=== PATIENT | female | born 1980 | race American Indian/Alaskan Native ===

== ENCOUNTER 2016-03-23 12:47 | Outpatient (CLI) | payer MEDICAID ==
[2016-03-23 14:11] LABS: Hematocrit 39.5 % (30.3-42.9); Mean Corpuscular HGB Conc 33 % (30-34); Mean Corpuscular Hemoglobin 30 pg (28-32); Mean Corpuscular Volume 90 fl (79-97); Platelet Count 340 K/mm3 (140-440); Red Blood Count 4.39 M/mm3 (3.65-5.03); White Blood Count 8.1 K/mm3 (4.5-11.0)
[2016-03-23 14:14] LABS: Bilirubin,Urine NEG (Negative); Blood,Urine NEG (Negative); Ketones,Urine 20 mg/dL (Negative); Leukocyte Esterase,Urine NEG (Negative); Mucus,Urine FEW /HPF; Nitrite,Urine NEG (Negative); Protein,Urine <15 mg/dL mg/dL (Negative); Urobilinogen,Urine < 2.0 mg/dL (<2.0)
[2016-03-23 14:24] LABS: Alanine Aminotransferase 7 units/L (7-56); Lactate Dehydrogenase 126 units/L (91-180); Uric Acid 4.8 mg/dL (3.5-7.6)
[2016-03-28 13:23] VITALS: BP 123/60
== END 2016-03-23 15:25 | disposition home or self-care (01) ==
LOC: TRG 12:47
PROVIDERS: ATTEND Obstetrics & Gynecology
DX: O47.1 False labor at or after 37 completed weeks of gestation (principal); Z3A.38 38 weeks gestation of pregnancy
CPT/HCPCS: 36415; 59025; 81001; 82565; 83615; 84450; 84460; 84550; 85027

== ENCOUNTER 2016-03-28 08:05 | Inpatient (IN) | payer MEDICAID ==
[2016-03-28] MEDS ORDERED: POLYCILLIN/NS 2 GM/100 ML 2 GM/100 ML BAG IV ONE (09:26)
[2016-03-28] MEDS ORDERED: PITOCin/NS 30 UNIT/500ML 30,000 MILLIUNITS/500 ML BAG IV ONE (09:26)
[2016-03-28] MEDS ORDERED: LACTATED RINGERS 1,000 ML ONE ×3 (09:26→13:13)
[2016-03-28] MEDS ORDERED: PITOCin/NS 20 UNIT/1000ML DRIP 20,000 MILLIUNITS/1,000 ML BAG IV ONE (09:26)
[2016-03-28] MEDS ORDERED: fentaNYL-BUPIV 2 MCG/ML-0.125% 200 MCG/100 ML BAG EPIDURAL ONE (11:10)
[2016-03-28] MEDS ORDERED: ePHEDrine SULFATE ONE (11:10)
[2016-03-28] MEDS ORDERED: SUBLIMAZE ONE (11:10)
[2016-03-28] MEDS ORDERED: XYLOCAINE MPF 2% ONE (13:17)
--- NOTE | 2016-03-28 13:51 | Procedure Note ---
OB Delivery Note - Delivery Date of Delivery: 03/28/16 (7-4oz male 1338) Surgeon: PARVEEN YE Estimated blood loss: <100cc - Vaginal Delivery presentation: vertex Delivery position: OA Intrapartum events: none Delivery induction: oxytocin Delivery augmentation: rupture of membranes, pitocin Delivery monitor: external FHT, external uterine, internal FHT, internal uterine Route of delivery: Delivery placenta: spontaneous Delivery cord: 3 umbilical vessels Episiotomy: none Delivery laceration: none Anesthesia: epidural - Infant A at 1 minute: 8 at 5 minutes: 9 Infant Gender: Male ( viable male. Cord short, clamped, cut, infant skin to skin. Cord blood collected. Spont. placenta, Pitocin infusing. Bleeding scant. No lacerations.)
[2016-03-28] MEDS ORDERED: TYLENOL PO PRN (13:52)
[2016-03-28] MEDS ORDERED: DERMOPLAST TP PRN (13:52)
[2016-03-28] MEDS ORDERED: MILK OF MAGNESIA PO PRN (13:52)
[2016-03-28] MEDS ORDERED: PHENERGAN PO PRN (13:52)
[2016-03-28] MEDS ORDERED: BENADRYL PO PRN (13:52)
[2016-03-28] MEDS ORDERED: PHENERGAN PR PRN (13:52)
[2016-03-28] MEDS ORDERED: LANSINOH TP PRN (13:52)
[2016-03-28] MEDS ORDERED: ZOFRAN IV PRN (13:52)
[2016-03-28] MEDS ORDERED: DULCOLAX PR PRN (13:52)
[2016-03-28] MEDS ORDERED: TUCKS PAD TP PRN (13:52)
[2016-03-28] MEDS ORDERED: SODIUM CHLORIDE FLUSH SYRINGE 10 ML IV NR (14:00)
[2016-03-28] MEDS ORDERED: ePHEDrine SULFATE IV PRN (14:44)
[2016-03-28] MEDS ORDERED: NARCAN 2 MG/2 ML IV PRN (14:44)
--- NOTE | 2016-03-28 14:44 | Anesthesia Consultation ---
Anesthesia Consult and Med Hx Date of service: 03/28/16 - Airway Anesthetic Teeth Evaluation: Good ROM Head & Neck: Adequate Mental/Hyoid Distance: Adequate Mallampati Class: Class III Intubation Access Assessment: Possibly Difficult - Pre-Operative Health Status ASA Pre-Surgery Classification: ASA3 Proposed Anesthetic Plan: Epidural, Spinal - Pulmonary Hx Asthma: No COPD: No Hx Pneumonia: No - Cardiovascular System Hx Hypertension: Yes - Central Nervous System Hx Seizures: No Hx Psychiatric Problems: No - Endocrine Hx Renal Disease: No Hx End Stage Renal Disease: No Hx Hypothyroidism: No Hx Hyperthyroidism: No - Hematic Hx Anemia: No Hx Sickle Cell Disease: No - Other Systems Hx Alcohol Use: No Hx Obesity: Yes (wt-325lbs)
[2016-03-28] MEDS ORDERED: fentaNYL-BUPIV 2 MCG/ML-0.125% 200 MCG/100 ML BAG EPIDURAL SCH (15:00)
[2016-03-28] MEDS: NORCO 5/325 PO PRN ×2 (18:50→23:15)
[2016-03-28] MEDS: MOTRIN PO SCH ×2 (18:51→23:14)
[2016-03-29 03:13] LABS: Hematocrit 31.7 % (30.3-42.9); Hemoglobin 10.9 gm/dl (10.1-14.3)
[2016-03-29] MEDS: MOTRIN PO SCH ×3 (05:39→19:38)
[2016-03-29] MEDS: NORCO 5/325 PO PRN ×2 (05:39→16:18)
[2016-03-29] MEDS ORDERED: BOOSTRIX IM ONE (06:05)
--- NOTE | 2016-03-29 09:42 | Progress Note ---
Assessment and Plan O: VSS AF PP H/H: 10.9/31.7 A: Stable PP Day 1 Anemia P: iron QD Subjective - Subjective Date of service: 03/29/16 Patient reports: appetite normal, voiding normally, pain well controlled, flatus , ambulating normally : doing well, other (Infant elevated bili levels, will need photo ther) Objective - Vital Signs Latest vital signs: Vital Signs Temp Pulse Pulse Resp BP BP Pulse Ox 03/29/16 01:12 98.2 F 57 L 18 110/66 03/28/16 21:00 98.5 F 56 L 20 127/64 03/28/16 17:15 98.2 F 67 20 138/57 03/28/16 16:00 97.9 F 126/80 03/28/16 15:38 59 L 100 03/28/16 15:37 64 126/60 03/28/16 15:22 68 157/74 03/28/16 15:07 71 128/77 80 L 03/28/16 14:56 72 86 03/28/16 14:51 74 L 03/28/16 14:39 71 141/63 03/28/16 14:37 66 153/73 03/28/16 14:33 61 139/70 03/28/16 14:31 70 100 03/28/16 14:26 68 96 03/28/16 14:25 69 90 03/28/16 14:21 91 H 154/81 100 03/28/16 14:16 72 100 03/28/16 14:15 69 154/67 03/28/16 13:56 73 151/62 Intake and Output 03/28/16 03/29/16 03/29/16 22:59 06:59 14:59 Intake Total 1280 240 Output Total 600 Balance 680 240 Intake: Oral 480 Intake, Free Water 800 240 Output: Urine 600 Void 600 Other: Total, Intake Amount 480 Total, Output Amount 200 Voiding Method Toilet # Voids Void 1 Weight 146.964 kg - Exam Breasts: Present: deferred Abdomen: Present: normal appearance, soft. Absent: distention, tenderness Vulva: both: normal Uterus: Present: normal, firm, fundal height at umbilicus Extremities: Present: normal
--- NOTE | 2016-03-29 09:42 | Discharge Summary ---
Providers - Providers Date of Admission: 03/28/16 08:05 Date of discharge: 03/30/16 Attending physician: BUBBA VALENCIA Primary care physician: ROWDY POLLACK MD Hospitalization Reason for admission: induction of labor, IUP at term Delivery: Episiotomy: none Laceration: none Incision: normal Other procedures: none complications: none Discharge diagnosis: IUP at term delivered baby: male Condition at discharge: Good Disposition: DISCHARGED TO HOME OR SELFCARE Plan - Discharge Medications Prescriptions: Ferrous Sulfate [Feosol 325 MG tab] 325 mg PO QDAY #60 tablet Ibuprofen [Motrin] 600 mg PO Q8H PRN #30 tablet PRN Reason: Pain - Provider Discharge Summary Activity: routine, no sex for 6 weeks, no heavy lifting 4 weeks, no strenuous exercise Diet: routine Instructions: routine Additional instructions: [] Smoking cessation referral if applicable(refer to patient education folder for contact #) [] Refer to [facility]'s [facility] Booklet Call your doctor immediately for: * Fever > 100.5 * Heavy vaginal bleeding ( >1 pad per hour) * Severe persistent headache * Shortness of breath * Reddened, hot, painful area to leg or breast * Drainage or odor from incision. * Keep incision clean and dry at all times and follow doctor's instructions regarding bathing/showering - Follow up plan Follow up: PRIMARY CARE, [Primary Care Provider] - (Call office to schedule infant circumcision. RTO 4 weeks )
[2016-03-29] MEDS: PRENATAL VITAMIN PO SCH (11:32)
--- NOTE | 2016-03-29 12:48 | Progress Note ---
Subjective Date of service: 03/29/16 Interval history: 1st day after normal vaginal delivery Patient is comfortable. Pain is controlled with pain meds. Ambulated well. No residual neurological deficit. No nausea or vomiting. No anesthesia complications Objective - Constitutional Vitals: Vital Signs - 12hr 03/29/16 03/29/16 01:12 08:53 Temperature 98.2 F 98.6 F Pulse Rate [ 57 L 64 From Monitor] Respiratory 18 18 Rate Blood Pressure 110/66 134/66 [Left Arm] - Labs CBC & Chem 7: 03/29/16 02:15
[2016-03-30] MEDS: MOTRIN PO SCH ×2 (08:07→16:52)
[2016-03-30] MEDS: NORCO 5/325 PO PRN ×2 (08:18→16:50)
[2016-03-30] MEDS: PRENATAL VITAMIN PO SCH (10:05)
[2016-03-30 19:04] VITALS: BP 136/67
== END 2016-03-30 20:43 | disposition home or self-care (01) | DRG 774 ==
LOC: LD 08:05 → OB 16:33
PROVIDERS: ADMIT Obstetrics & Gynecology; ATTEND Obstetrics & Gynecology
PROC: 10E0XZZ Delivery of Products of Conception, External Approach (ICD-10-PCS; principal; 2016-03-28)
PROC: 3E0S3CZ (ICD-10-PCS; 2016-03-28)
PROC: 00HU33Z Insertion of Infusion Device into Spinal Canal, Percutaneous Approach (ICD-10-PCS; 2016-03-28)
PROC: 10907ZC Drainage of Amniotic Fluid, Therapeutic from Products of Conception, Via Natural or Artificial Opening (ICD-10-PCS; 2016-03-28)
PROC: 3E033VJ Introduction of Other Hormone into Peripheral Vein, Percutaneous Approach (ICD-10-PCS; 2016-03-28)
DX: O13.4 Gestational [pregnancy-induced] hypertension without significant proteinuria, complicating childbirth (principal); O98.52 Other viral diseases complicating childbirth; Z68.43 Body mass index [BMI] 50.0-59.9, adult; B00.9 Herpesviral infection, unspecified; O99.214 Obesity complicating childbirth; E66.01 Morbid (severe) obesity due to excess calories; Z3A.38 38 weeks gestation of pregnancy; Z37.0 Single live birth; O69.3XX0 Labor and delivery complicated by short cord, not applicable or unspecified; O99.820 Streptococcus B carrier state complicating pregnancy; O90.81 Anemia of the puerperium
CPT/HCPCS: 36415; 85014; 85018; 86850; 86900; 86901; 90471; 90715; 99211; A6250; G0463; J0290; J2590; J3010; J7120

== ENCOUNTER 2016-08-12 08:52 | Emergency (ER) | payer MEDICAID ==
[2016-08-12 08:59] VITALS: BP 154/91
[2016-08-12 09:27] LABS: Bilirubin,Urine NEG (Negative); Blood,Urine NEG (Negative); Ketones,Urine NEG (Negative); Leukocyte Esterase,Urine TR (Negative); Mucus,Urine FEW /HPF; Nitrite,Urine NEG (Negative); Protein,Urine <15 mg/dL mg/dL (Negative); RBC,Urine < 1.0 /HPF (0.0-6.0); Urobilinogen,Urine < 2.0 mg/dL (<2.0); WBC,Urine < 1.0 /HPF (0.0-6.0)
[2016-08-12] MEDS ORDERED: NACL 0.9% 1000 ML 1,000 ML IV ONE (09:40)
[2016-08-12] MEDS ORDERED: TYLENOL PO ONE (09:41)
--- NOTE | 2016-08-12 10:00 | Emergency Department Report ---
ED General Adult HPI - General Chief complaint: Nausea/Vomiting/Diarrhea Stated complaint: N/V Time Seen by Provider: 08/12/16 09:33 Source: patient Mode of arrival: Ambulatory Limitations: No Limitations - History of Present Illness Initial comments: PT c/o n/v, lower abd cramps, and headache. PT states her symptoms started yesterday. 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 PT is G5, P 3, A 1 MD Complaint: vomiting -: Gradual, days(s) Location: head, abdomen Severity scale (0 -10): 6 Quality: other (cramping ) Consistency: constant Improves with: none Worsens with: none Associated Symptoms: headaches, loss of appetite, malaise, nausea/vomiting. denies: fever/chills - Related Data Previous Rx's Medication Instructions Recorded Last Taken Type Ferrous Sulfate [Feosol 325 MG tab] 325 mg PO QDAY #60 tablet 03/29/16 Unknown Rx Vit No.130/Iron/FA 1 each PO DAILY #30 tablet 08/12/16 Unknown Rx [ Tablet] Promethazine [Phenergan TAB] 12.5 mg PO Q8HR PRN #6 tablet 08/12/16 Unknown Rx Allergies Allergy/AdvReac Type Severity Reaction Status Date / Time No Known Allergies Allergy Unverified 10/28/12 02:34 ED Review of Systems ROS: Stated complaint: N/V Other details as noted in HPI Comment: All other systems reviewed and negative Constitutional: malaise. denies: fever ENT: denies: throat pain Respiratory: denies: cough Gastrointestinal: abdominal pain, nausea, vomiting. denies: diarrhea Genitourinary: abnormal menses. denies: dysuria Neurological: headache. denies: weakness ED Past Medical Hx - Past Medical History Previous Medical History?: Yes Hx Hypertension: Yes Hx Congestive Heart Failure: No Hx Diabetes: No Hx Deep Vein Thrombosis: No Hx Renal Disease: No Hx Sickle Cell Disease: No Hx Seizures: No Hx Asthma: No Hx COPD: No Hx HIV: No - Surgical History Past Surgical History?: No - Social History Smoking Status: Never Smoker Substance Use Type: None - Medications Home Medications: Home Medications Medication Instructions Recorded Confirmed Last Taken Type Ferrous Sulfate [Feosol 325 MG tab] 325 mg PO QDAY #60 tablet 03/29/16 Unknown Rx Vit No.130/Iron/FA 1 each PO DAILY #30 tablet 08/12/16 Unknown Rx [ Tablet] Promethazine [Phenergan TAB] 12.5 mg PO Q8HR PRN #6 tablet 08/12/16 Unknown Rx ED Physical Exam - General Limitations: No Limitations General appearance: alert, in no apparent distress, obese - Head Head exam: Present: atraumatic, normocephalic, normal inspection - Eye Eye exam: Present: normal appearance, PERRL. Absent: conjunctival injection - ENT ENT exam: Present: normal exam, TM's normal bilaterally, normal external ear exam - Neck Neck exam: Present: normal inspection, full ROM. Absent: lymphadenopathy - Respiratory Respiratory exam: Present: normal lung sounds bilaterally. Absent: respiratory distress - Cardiovascular Cardiovascular Exam: Present: regular rate, normal rhythm, normal heart sounds - GI/Abdominal GI/Abdominal exam: Present: soft, tenderness (suprapubic tenderness ), normal bowel sounds - Extremities Exam Extremities exam: Present: normal inspection, full ROM - Back Exam Back exam: Present: normal inspection, full ROM. Absent: tenderness, CVA tenderness (R), CVA tenderness (L), muscle spasm, paraspinal tenderness - Neurological Exam Neurological exam: Present: alert, oriented X3, CN II-XII intact, normal gait - Expanded Neurological Exam Expanded Patient oriented to: Present: person, place, time Speech: Present: fluid speech Best Eye Response ([place]): (4) open spontaneously Best Motor Response (Rubén): (6) obeys commands Best Verbal Response ([place]): (5) oriented Rubén Total: 15 - Psychiatric Psychiatric exam: Present: normal affect, normal mood - Skin Skin exam: Present: warm, dry, intact, normal color ED Course Vital Signs 08/12/16 08:57 Temperature 97.9 F Pulse Rate 63 Respiratory 16 Rate Blood Pressure 154/91 O2 Sat by Pulse 100 Oximetry - Reevaluation(s) Reevaluation #1: 08/12/16 10:01 PT aware of urine test results. PT aware of plan of care. Reevaluation #2: 08/12/16 11:52 PT states she is feeling better. PT aware of plan of care. PT aware she will need to follow up with OB/ [facility] [employer] [facility]. PT has no questions at this time. - Pulse Oximetry Interpretation Digit-Finger Initial Pulse Oximetry Readin Actions Taken: none ED Medical Decision Making - Lab Data Result diagrams: 08/12/16 09:51 08/12/16 09:51 Lab Results 08/12/16 08/12/16 08/12/16 Range/Units 09:08 09:51 09:51 WBC 6.4 (4.5-11.0) K/mm3 RBC 4.12 (3.65-5.03) M/mm3 Hgb 12.8 (10.1-14.3) gm/dl Hct 38.0 (30.3-42.9) % MCV 92 (79-97) fl MCH 31 (28-32) pg MCHC 34 (30-34) % RDW 13.6 (13.2-15.2) % Plt Count 341 (140-440) K/mm3 Lymph % (Auto) 27.3 (13.4-35.0) % [place] % (Auto) 8.5 H (0.0-7.3) % Eos % (Auto) 4.7 H (0.0-4.3) % Baso % (Auto) 0.6 (0.0-1.8) % Lymph # 1.7 (1.2-5.4) K/mm3 [place] # 0.5 (0.0-0.8) K/mm3 Eos # 0.3 (0.0-0.4) K/mm3 Baso # 0.0 (0.0-0.1) K/mm3 Seg Neutrophils % 58.9 (40.0-70.0) % Seg Neutrophils # 3.7 (1.8-7.7) K/mm3 Sodium 135 L (137-145) mmol/L Potassium 3.9 (3.6-5.0) mmol/L Chloride 98.8 (98-107) mmol/L Carbon Dioxide 26 (22-30) mmol/L Anion Gap 14 mmol/L BUN 11 (7-17) mg/dL Creatinine 0.5 L (0.7-1.2) mg/dL Estimated GFR > 60 ml/min BUN/Creatinine Ratio 22.00 % Glucose 84 (65-100) mg/dL Calcium 9.0 (8.4-10.2) mg/dL Total Bilirubin 0.20 (0.1-1.2) mg/dL AST 9 (5-40) units/L ALT 11 (7-56) units/L Alkaline Phosphatase 60 (35-129) units/L Total Protein 6.4 (6.3-8.2) g/dL Albumin 3.5 L (3.9-5) g/dL Albumin/Globulin Ratio 1.2 % HCG, Quant (0-4) mIU/mL Urine Color Straw (Yellow) Urine Turbidity Clear (Clear) Urine pH 7.0 (5.0-7.0) Ur Specific [place] 1.013 (1.003-1.030) Urine Protein <15 mg/dl (Negative) mg/dL Urine Glucose (UA) Neg (Negative) mg/dL Urine Ketones Neg (Negative) mg/dL Urine Blood Neg (Negative) Urine Nitrite Neg (Negative) Ur Reducing Substances Not Reportable Urine Bilirubin Neg (Negative) Urine Ictotest Not Reportable Urine Urobilinogen < 2.0 (<2.0) mg/dL Ur Leukocyte Esterase Tr (Negative) Urine WBC (Auto) < 1.0 (0.0-6.0) /HPF Urine RBC (Auto) < 1.0 (0.0-6.0) /HPF U Epithel Cells (Auto) < 1.0 (0-13.0) /HPF Urine Mucus Few /HPF Urine HCG, Qual Positive A (Negative) Blood Type 08/12/16 08/12/16 Range/Units 09:51 09:51 WBC (4.5-11.0) K/mm3 RBC (3.65-5.03) M/mm3 Hgb (10.1-14.3) gm/dl Hct (30.3-42.9) % MCV (79-97) fl MCH (28-32) pg MCHC (30-34) % RDW (13.2-15.2) % Plt Count (140-440) K/mm3 Lymph % (Auto) (13.4-35.0) % [place] % (Auto) (0.0-7.3) % Eos % (Auto) (0.0-4.3) % Baso % (Auto) (0.0-1.8) % Lymph # (1.2-5.4) K/mm3 [place] # (0.0-0.8) K/mm3 Eos # (0.0-0.4) K/mm3 Baso # (0.0-0.1) K/mm3 Seg Neutrophils % (40.0-70.0) % Seg Neutrophils # (1.8-7.7) K/mm3 Sodium (137-145) mmol/L Potassium (3.6-5.0) mmol/L Chloride (98-107) mmol/L Carbon Dioxide (22-30) mmol/L Anion Gap mmol/L BUN (7-17) mg/dL Creatinine (0.7-1.2) mg/dL Estimated GFR ml/min BUN/Creatinine Ratio % Glucose (65-100) mg/dL Calcium (8.4-10.2) mg/dL Total Bilirubin (0.1-1.2) mg/dL AST (5-40) units/L ALT (7-56) units/L Alkaline Phosphatase (35-129) units/L Total Protein (6.3-8.2) g/dL Albumin (3.9-5) g/dL Albumin/Globulin Ratio % HCG, Quant 49410 H (0-4) mIU/mL Urine Color (Yellow) Urine Turbidity (Clear) Urine pH (5.0-7.0) Ur Specific [place] (1.003-1.030) Urine Protein (Negative) mg/dL Urine Glucose (UA) (Negative) mg/dL Urine Ketones (Negative) mg/dL Urine Blood (Negative) Urine Nitrite (Negative) Ur Reducing Substances Urine Bilirubin (Negative) Urine Ictotest Urine Urobilinogen (<2.0) mg/dL Ur Leukocyte Esterase (Negative) Urine WBC (Auto) (0.0-6.0) /HPF Urine RBC (Auto) (0.0-6.0) /HPF U Epithel Cells (Auto) (0-13.0) /HPF Urine Mucus /HPF Urine HCG, Qual (Negative) Blood Type O POSITIVE - Radiology Data Radiology results: report reviewed US - live 7 week 3 day IUP - Differential Diagnosis viral illness, , ectopic, uti, dehydration Critical Care Time: No Critical care attestation.: If time is entered above; I have spent that time in minutes in the direct care of this critically ill patient, excluding procedure time. ED Disposition Clinical Impression: Nausea and vomiting during Qualifiers: Weeks of gestation: less than 8 weeks Qualified Code(s): Z3A.01 - Less than 8 weeks gestation of Headache Qualifiers: Headache type: unspecified Headache chronicity pattern: acute headache Intractability: not intractable Qualified Code(s): R51 - Headache Disposition: DC- TO HOME OR SELFCARE Is pt being admited?: No Does the pt Need Aspirin: No Condition: Stable Instructions: (ED), Acute Nausea and Vomiting (ED) Additional Instructions: Follow up with OB/ [facility] in 2-3 days No ETOH or driving after taking Phenergan OTC Tylenol as needed for pain Prescriptions: Vit No.130/Iron/FA [ Tablet] 1 each PO DAILY #30 tablet Promethazine [Phenergan TAB] 12.5 mg PO Q8HR PRN #6 tablet PRN Reason: Nausea Referrals: PRIMARY CARE, [Primary Care Provider] - 3-5 Days BRETT MARRERO MD [Staff Physician] - 3-5 Days Forms: Work/School Release Form(ED) Time of Disposition: 12:00
[2016-08-12 10:15] LABS: Basophils % (Auto) 0.6 % (0.0-1.8); Eosinophils % (Auto) 4.7 % (0.0-4.3); Hemoglobin 12.8 gm/dl (10.1-14.3); Mean Corpuscular HGB Conc 34 % (30-34); Mean Corpuscular Hemoglobin 31 pg (28-32); Mean Corpuscular Volume 92 fl (79-97); Red Blood Count 4.12 M/mm3 (3.65-5.03); Red Cell Distribution Width 13.6 % (13.2-15.2); White Blood Count 6.4 K/mm3 (4.5-11.0)
[2016-08-12 10:20] LABS: Platelet Count 341 K/mm3 (140-440)
--- NOTE | 2016-08-12 11:00 | Ultrasound Report ---
ULTRASOUND OB LESS THAN 14 WEEKS FETUS ULTRASOUND OB TRANSVAGINAL HISTORY: Pelvic pain and cramping, nausea. FINDINGS: Transabdominal and transvaginal ultrasound imaging was performed. The uterus measures 13 x 7 x 8 cm. An intrauterine gestational sac containing a pole and yolk sac is identified. Heart rate measures 161 beats per minute. [place]-rump length measures 12.0 mm which correlates with a 7 week, 3 day . Estimated due date is March 28, 2017. No subchorionic hemorrhage is appreciated. The placenta has not yet developed. The right ovary measures 4.1 x 2.0 x 2.5 cm. The left ovary measures 3.5 x 1.9 x 2.3 cm. A complex area measuring 2 cm in the left ovary is consistent with a corpus luteum cyst. IMPRESSION: Viable, single intrauterine dated at 7 weeks, 3 days. No acute abnormality appreciated.
[2016-08-12 11:08] LABS: Alanine Aminotransferase 11 units/L (7-56); Albumin 3.5 g/dL (3.9-5); Albumin/Globulin Ratio 1.2 %; Alkaline Phosphatase 60 units/L (35-129); Anion Gap 14 mmol/L; Blood Urea Nitrogen 11 mg/dL (7-17); Carbon Dioxide 26 mmol/L (22-30); Chloride 98.8 mmol/L (98-107); Glucose 84 mg/dL (65-100); Potassium 3.9 mmol/L (3.6-5.0); Sodium 135 mmol/L (137-145); Total Protein 6.4 g/dL (6.3-8.2)
== END 2016-08-12 12:20 | disposition home or self-care (01) ==
LOC: ED 08:52
DX: O21.9 Vomiting of pregnancy, unspecified (principal); O26.891 Other specified pregnancy related conditions, first trimester; R11.0 Nausea; R51 Headache; I10 Essential (primary) hypertension; Z3A.01 Less than 8 weeks gestation of pregnancy
CPT/HCPCS: 36415; 76801; 76817; 80053; 81001; 81025; 84702; 85025; 86900; 86901; 96360; 96361; 99284; J7030

== ENCOUNTER 2017-02-26 10:46 | Outpatient (CLI) | payer MEDICAID ==
[2017-02-26 11:46] LABS: Bilirubin,Urine NEG (Negative); Blood,Urine NEG (Negative); Color,Urine Yellow (Yellow); Nitrite,Urine NEG (Negative); Protein,Urine <15 mg/dL mg/dL (Negative); Urobilinogen,Urine < 2.0 mg/dL (<2.0); WBC,Urine < 1.0 /HPF (0.0-6.0)
[2017-02-26 12:00] LABS: Hematocrit 33.2 % (30.3-42.9); Mean Corpuscular HGB Conc 33 % (30-34); Mean Corpuscular Hemoglobin 31 pg (28-32); Mean Corpuscular Volume 92 fl (79-97); Platelet Count 344 K/mm3 (140-440); Red Blood Count 3.61 M/mm3 (3.65-5.03); Red Cell Distribution Width 13.5 % (13.2-15.2)
[2017-02-26 12:05] LABS: Alanine Aminotransferase 11 units/L (7-56)
--- NOTE | 2017-02-26 13:01 | Ultrasound Report ---
OB ULTRASOUND FOLLOWUP History well being. Technique: Transabdominal ultrasound with Doppler interrogation. Gestation: Single Position: Cephalic Amniotic Fluid: Normal CHARLIE = 12.5 cm Heart Rate: 138 BPM BPD: 8.2 cm = 32 w 5 d HC: 33.3 cm = 38 w 0 d AC: 33.0 cm = 37 w 0 d FL: 7.1 cm = 36 w 1 d HC/AC Ratio: 1.01 Cephalic Index: 67.0 Estimated Weight: 2900 grams. 73rd percentile. Clinical age = 35 w 6 d EDC: 03/27/17 US Gest. Age = 36 w 0 d EDC: 03/26/17 IMPRESSION: Viable, single intrauterine as described.
--- NOTE | 2017-02-26 13:02 | Ultrasound Report ---
ULTRASOUND BIOPHYSICAL PROFILE: History: well being Technique: Transabdominal ultrasound with Doppler interrogation. 2 - breathing movements 2 - movements 2 - posture and tone 2 - Qualitative amniotic fluid volume 8 - TOTAL SCORE OF POSSIBLE 8 Heart Rate (bpm) 138
--- NOTE | 2017-02-26 13:03 | Ultrasound Report ---
ULTRASOUND OB VELOCIMETRY UMBILICAL ARTERY History: -induced hypertension. Findings: Transabdominal ultrasound with spectral Doppler interrogation was performed on 3 segments of the umbilical cord. heart rate measures 138 beats per minute. The spectral waveforms are normal and persistent. No evidence for loss of end-diastolic flow. The S./D. ratio average measures 2.26. The resistive index average measures 0.55. Impression: No abnormality identified.
[2017-02-26 13:34] VITALS: BP 131/70
== END 2017-02-26 13:55 | disposition home or self-care (01) ==
LOC: TRG 10:46
PROVIDERS: ATTEND Obstetrics & Gynecology
DX: O09.523 Supervision of elderly multigravida, third trimester (principal); O13.3 Gestational [pregnancy-induced] hypertension without significant proteinuria, third trimester; O47.03 False labor before 37 completed weeks of gestation, third trimester; Z3A.35 35 weeks gestation of pregnancy
CPT/HCPCS: 36415; 59025; 76816; 76819; 76820; 81001; 82565; 83615; 84450; 84460; 84550; 85027

== ENCOUNTER 2018-08-26 14:41 | Inpatient (IN) | payer MEDICAID ==
[2018-08-26] MEDS ORDERED: LACTATED RINGERS 1,000 ML ONE (14:47)
--- NOTE | 2018-08-26 15:19 | History and Physical Report ---
History of Present Illness Date of examination: 08/26/18 Date of admission: 08/26/18 14:45 Chief complaint: sent over from [facility] for IOL for elevated BP History of present illness: This is a 38 yo EDC 08/28/18 at 39+4 weeks here for IOL for elevated BP, term. She is a patient of [facility] with hx of morbid obesity. She was treated for UTI and Trichomoniasis. She is rubella non immune. 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 denies: smoking, alcohol abuse, prescription drug abuse - Obstetrical History Expected Date of Delivery: 08/28/18 Actual Gestation: 39 Week(s) 5 Day(s) : 6 Medications and Allergies Allergies Allergy/AdvReac Type Severity Reaction Status Date / Time No Known Allergies Allergy Unverified 10/28/12 02:34 Home Medications Medication Instructions Recorded Confirmed Last Taken Type Ferrous Sulfate [Feosol 325 MG tab] 325 mg PO QDAY #60 tablet 03/29/16 03/14/17 1 Day Ago Rx ~03/13/17 Vit No.130/Iron/Folic 1 each PO DAILY #30 tablet 08/12/16 Unknown Rx [ Tablet] Promethazine [Phenergan TAB] 12.5 mg PO Q8HR PRN #6 tablet 08/12/16 Unknown Rx Ibuprofen [Motrin 800 MG tab] 800 mg PO Q8H PRN #30 tablet 03/14/17 Unknown Rx Review of Systems All systems: negative - Physical Exam Breasts: Positive: normal Cardiovascular: Regular rate, Normal S1 Lungs: Positive: Clear to auscultation, Normal air movement Abdomen: Positive: normal appearance, soft, normal bowel sounds. Negative: distention, tenderness, guarding Genitourinary (Female): Positive: normal external genitalia, normal perenium Vagina: Positive: normal moisture Uterus: Positive: normal size, normal contour Anus/Rectum: Positive: normal perianal skin Extremities: Positive: normal Deep Tendon Reflex Grade: Normal +2 - Obstetrical FHR: category 1 Uterine Contraction Monitor Mode: External Cervical Dilatation: 2 Cervical Effacement Percentage: 50 station: -3 Uterine Contraction Pattern: Irregular Uterine Tone Measurement Phase: Resting Uterine Contraction Intensity: Mild Results All other labs normal. Assessment and Plan A/P IUP 39+5 weeks Morbid obesity Herpes Elevated BP Admit to labor and delivery GBS - start amp IOL wwith pitocin ( favorable cervix) No s/sx of herpetic outbreak Expect vaginal delivery
[2018-08-26] MEDS ORDERED: AMPICILLIN/NS 2 GM/100 ML 2 GM/100 ML BAG IV ONE (15:23)
[2018-08-26] MEDS ORDERED: NARCAN 0.4 MG/1 ML IV PRN (15:23)
[2018-08-26] MEDS ORDERED: XYLOCAINE 2% INFILTRATI ONE (15:23)
[2018-08-26] MEDS ORDERED: MINERAL OIL PO PRN (15:23)
[2018-08-26] MEDS ORDERED: BRETHINE IVP PRN (15:23)
[2018-08-26] MEDS ORDERED: STADOL IV PRN (15:23)
[2018-08-26] MEDS ORDERED: PHENERGAN PR PRN (15:23)
[2018-08-26] MEDS ORDERED: ZOFRAN IV PRN (15:23)
[2018-08-26] MEDS ORDERED: BRETHINE SUB-Q PRN (15:23)
[2018-08-26] MEDS ORDERED: PITOCin/NS 30 UNIT/500ML 30 UNITS/500 ML BAG IV SCH ×2 (16:00)
[2018-08-26] MEDS ORDERED: PITOCin/NS 20 UNIT/1000ML DRIP 20 UNITS/1,000 ML BAG IV SCH (16:00)
[2018-08-26 16:18] LABS: Hematocrit 33.3 % (30.3-42.9); Hemoglobin 11.3 gm/dl (10.1-14.3); Mean Corpuscular HGB Conc 34 % (30-34); Mean Corpuscular Volume 93 fl (79-97); Platelet Count 335 K/mm3 (140-440); Red Blood Count 3.59 M/mm3 (3.65-5.03); Red Cell Distribution Width 13.7 % (13.2-15.2)
[2018-08-26 16:29] LABS: Alanine Aminotransferase 9 units/L (7-56); Uric Acid 4.5 mg/dL (3.5-7.6)
[2018-08-26] MEDS: LACTATED RINGERS 1,000 ML IV SCH (20:19)
[2018-08-26] MEDS ORDERED: CERVIDIL VG ONE (23:47)
[2018-08-27] MEDS: LACTATED RINGERS 1,000 ML IV SCH ×3 (04:00→17:09)
--- NOTE | 2018-08-27 09:04 | Event Note ---
Date: 08/27/18 Patient rested throughout the night with cervidl. Re check noted to be /- Arom llight meconium noted. Cat 1 strip. Internal of FSWE and IUPC placed as patient is morbid obesed. SVE /-1 offer epidural afer IV infusion start pitocin high dose expect vaginal delivery
[2018-08-27] MEDS ORDERED: NARCAN 2 MG/2 ML IV PRN (11:22)
--- NOTE | 2018-08-27 11:23 | Anesthesia Day of Surgery ---
Anesthesia Day of Surgery - Day of Surgery Patient Examined: Yes Patient H&P Reviewed: Yes Patient is NPO: No
--- NOTE | 2018-08-27 11:23 | Anesthesia Consultation ---
Anesthesia Consult and Med Hx Date of service: 08/27/18 - Airway Anesthetic Teeth Evaluation: Good ROM Head & Neck: Adequate Mental/Hyoid Distance: Adequate Mallampati Class: Class I Intubation Access Assessment: Good - Pulmonary Exam CTA: Yes - Cardiac Exam Cardiac Exam: RRR - Pre-Operative Health Status ASA Pre-Surgery Classification: ASA3 Proposed Anesthetic Plan: Epidural - Pulmonary Hx Asthma: No COPD: No Hx Pneumonia: No - Cardiovascular System Hx Hypertension: Yes (PIH) - Central Nervous System Hx Seizures: No Hx Psychiatric Problems: No - Endocrine Hx Renal Disease: No Hx End Stage Renal Disease: No Hx Hypothyroidism: No Hx Hyperthyroidism: No - Hematic Hx Anemia: No Hx Sickle Cell Disease: No - Other Systems Hx Alcohol Use: No Hx Obesity: Yes (wt-325lbs)
[2018-08-27] MEDS ORDERED: APRESOLINE IV PRN ×2 (11:51→12:12)
[2018-08-27] MEDS ORDERED: fentaNYL-BUPIV 2 MCG/ML-0.125% 200 MCG/100 ML BAG EPIDURAL SCH (12:00)
[2018-08-27] MEDS ORDERED: NORMODYNE ONE (12:10)
[2018-08-27] MEDS ORDERED: NORMODYNE PO ONE (12:12)
--- NOTE | 2018-08-27 12:41 | Procedure Note ---
OB Delivery Note - Delivery Date of Delivery: 08/27/18 Estimated blood loss: 100cc - Vaginal Delivery presentation: vertex Delivery position: OA Intrapartum events: meconium, preeclampsia Delivery induction: cervidil Delivery augmentation: rupture of membranes, pitocin Delivery monitor: internal FHT, internal uterine Route of delivery: Delivery placenta: spontaneous Delivery cord: nuchal cord, 3 umbilical vessels, other (body cord x2) Episiotomy: none Delivery laceration: other (periurethral abrasion, right labial abrasion not repaired) Anesthesia: epidural Delivery comments: Excellent maternal effort resulted in of viable . Head did not restitute, shoulders followed easily laterally. Left arm manually delivered, body followed easily. Body cord x2, nuchal cord x1, somersaulted at perineum. Light meconium stained fluid, NICU present. Good tone noted, no cry. Cord clamped and cut 20 seconds after delivery, infant was then vigorous and taken to warmer for evaluation. Apgars 8/9, 7lb 4oz. Placenta intact. Periurethral and labial abrasions noted, not repaired. Fundus firm, 2 fb below umbilicus following delivery of placenta. IV displaced. 10 U Pitocin IM administered. EBL 100mL. to maternal chest. Mother has chosen to bottle feed. Severe range blood pressure 200/94 during delivery. 200mg Labetalol PO given before attempt at placing new IV. Normotensive soon after. IV attempt unsuccessful, anesthesia called for placement. To have Magnesium sulfate infusion x24 hours . IV Hydralazine PRN once IV site established. - A at 1 minute: 8 at 5 minutes: 9
[2018-08-27] MEDS ORDERED: PITOCin/NS 20 UNIT/1000ML DRIP 20 UNITS/1,000 ML BAG IV SCH (13:00)
[2018-08-27] MEDS: SUBLIMAZE IV PRN ×2 (14:00→15:59)
[2018-08-27] MEDS ORDERED: MAGNESIUM SULFATE 4GM/100ML 4 GM/100 ML BAG IV ONE (14:30)
[2018-08-27] MEDS ORDERED: MAGNESIUM SULFATE 40GM/1000ML 40 GM/1,000 ML BAG IV SCH (15:00)
[2018-08-27] MEDS ORDERED: IBUPROFEN PO ONE (18:21)
[2018-08-27 19:28] LABS: Bacteria,Urine 1+ /HPF (Negative); Bilirubin,Urine NEG (Negative); Blood,Urine SM (Negative); Color,Urine Yellow (Yellow); Protein,Urine <15 mg/dL mg/dL (Negative); Urobilinogen,Urine < 2.0 mg/dL (<2.0); WBC,Urine < 1.0 /HPF (0.0-6.0)
[2018-08-28] MEDS: SUBLIMAZE IV PRN (04:55)
[2018-08-28] MEDS: LACTATED RINGERS 1,000 ML IV SCH (04:56)
[2018-08-28] MEDS ORDERED: LACTATED RINGERS 1,000 ML IV SCH ×2 (08:59→09:00)
[2018-08-28] MEDS ORDERED: LANSINOH TP PRN (08:59)
[2018-08-28] MEDS ORDERED: SODIUM CHLORIDE FLUSH SYRINGE 10 ML IV NR (08:59)
[2018-08-28] MEDS ORDERED: MAGNESIUM SULFATE 40GM/1000ML 40 GM/1,000 ML BAG IV SCH ×2 (08:59)
[2018-08-28] MEDS ORDERED: NORMODYNE IV PRN (09:00)
[2018-08-28] MEDS ORDERED: ZOFRAN IV PRN (09:00)
[2018-08-28] MEDS ORDERED: NORMODYNE IV ONE (09:00)
[2018-08-28] MEDS ORDERED: PHENERGAN PO PRN (09:00)
[2018-08-28] MEDS ORDERED: BENADRYL PO PRN (09:00)
[2018-08-28] MEDS ORDERED: CALCIUM GLUCONATE IV ONE (09:00)
[2018-08-28] MEDS ORDERED: TYLENOL PO PRN (09:00)
[2018-08-28] MEDS ORDERED: MAGNESIUM SULFATE 4GM/100ML 4 GM/100 ML BAG IV ONE ×2 (09:00)
[2018-08-28] MEDS ORDERED: APRESOLINE IV PRN (09:00)
[2018-08-28] MEDS: NORCO 5/325 PO PRN ×3 (09:12→23:00)
[2018-08-28] MEDS: PRENATAL VITAMIN PO SCH (09:12)
[2018-08-28] MEDS: COLACE PO SCH ×2 (09:12→21:30)
[2018-08-28] MEDS: IBUPROFEN PO SCH ×3 (09:12→21:29)
[2018-08-28 09:27] LABS: Hematocrit 35.6 % (30.3-42.9)
[2018-08-28 09:45] LABS: Alanine Aminotransferase 9 units/L (7-56)
[2018-08-28] MEDS ORDERED: PHENERGAN PR PRN (10:00)
[2018-08-28] MEDS ORDERED: DULCOLAX PR PRN (10:00)
--- NOTE | 2018-08-28 11:05 | Progress Note ---
Assessment and Plan A: 1. PPD1 s/p 2. Gestational hypertension P: Discontinue magnesium sulfate at 1505 today, transfer to mother/baby Continue to monitor BP, IV Hydralazine or Labetalol PRN Subjective - Subjective Date of service: 08/28/18 Principal diagnosis: Interval history: Pt is PPD1 s/p of viable male infant. Throughout the second stage of labor, she had severe range BP. She is now on Magnesium Sulfate x20 hours. Patient reports: appetite normal, pain well controlled : doing well, bottle feeding Objective - Vital Signs Latest vital signs: Vital Signs Pulse BP Pulse Ox 08/28/18 10:15 64 136/78 08/28/18 09:18 62 173/80 08/28/18 08:16 60 142/67 08/28/18 07:15 59 L 129/64 08/28/18 06:15 61 126/62 08/28/18 05:15 69 121/62 08/28/18 05:02 62 119/64 98 08/28/18 04:15 61 114/59 08/28/18 03:15 65 121/71 08/28/18 02:15 78 117/58 08/28/18 01:22 63 136/65 08/28/18 01:16 70 152/86 08/28/18 00:16 64 132/60 08/27/18 22:14 64 120/60 08/27/18 20:37 64 152/72 08/27/18 20:07 66 155/84 08/27/18 19:37 71 166/91 08/27/18 19:07 67 169/86 08/27/18 18:37 68 174/87 08/27/18 18:06 63 186/95 08/27/18 17:07 68 156/83 08/27/18 16:36 71 141/84 08/27/18 16:06 72 141/66 08/27/18 15:35 74 142/67 08/27/18 15:26 78 169/80 08/27/18 15:18 78 169/80 08/27/18 15:04 72 185/76 08/27/18 14:49 75 166/81 08/27/18 14:34 76 186/84 08/27/18 14:19 66 187/90 08/27/18 14:05 65 185/89 08/27/18 14:03 73 202/98 08/27/18 13:49 61 180/92 08/27/18 13:34 66 175/84 08/27/18 13:19 70 170/81 08/27/18 13:05 63 180/80 08/27/18 12:49 65 135/65 08/27/18 12:21 71 138/65 08/27/18 12:15 59 L 209/98 08/27/18 11:53 59 L 209/98 08/27/18 11:48 74 92 08/27/18 11:47 91 H 64 L 08/27/18 11:45 80 200/94 08/27/18 11:43 78 99 08/27/18 11:38 71 96 08/27/18 11:33 69 96 08/27/18 11:25 59 L 209/98 08/27/18 11:19 76 211/93 Intake and Output 08/27/18 08/28/18 08/28/18 23:59 07:59 15:59 Intake Total 856.25 1000 Output Total 1400 1900 Balance -543.75 -900 Intake: IV 856.25 1000 Lactated Ringers 1,000 ml 856.25 1000 @ 125 mls/hr IV DIRECT SILVA Rx#:[id number] Output: Urine 1400 1900 Indwelling Catheter 1400 1900 Other: Total, Output Amount 1400 1900 # Bowel Movements 1 Estimated Blood Loss 100 - Exam Cardiovascular: Present: Regular rate, Normal S1, Normal S2, No murmurs Lungs: Present: Clear to auscultation, Normal air movement Abdomen: Present: normal appearance, soft Uterus: Present: normal, firm, fundal height below umbilicus Extremities: Present: normal - Labs Labs: Abnormal lab results 08/27/18 08/28/18 08/28/18 Range/Units 17:32 09:10 09:10 Creatinine 0.4 L (0.7-1.2) mg/dL Magnesium 2.90 H 4.20 H (1.7-2.3) mg/dL Lactate Dehydrogenase 233 H (91-180) units/L
[2018-08-28] MEDS: TUCKS PAD TP PRN (18:20)
[2018-08-28] MEDS ORDERED: MILK OF MAGNESIA PO PRN (22:00)
[2018-08-29] MEDS: IBUPROFEN PO SCH ×4 (03:00→22:04)
--- NOTE | 2018-08-29 08:58 | Progress Note ---
Assessment and Plan - Patient Problems (1) PIH ( induced hypertension) Current Visit: Yes Status: Acute Plan to address problem: clinically improved consider discharge home later today Subjective - Subjective Date of service: 08/29/18 Principal diagnosis: Interval history: Patient reports headache is improved today. Pain is better controlled. Tolerating regular diet. Patient reports: appetite normal, voiding normally, pain well controlled : doing well Objective - Vital Signs Latest vital signs: Vital Signs Temp Pulse Resp BP BP Pulse Ox 08/28/18 23:28 97.9 F 51 L 20 138/79 08/28/18 21:44 97.1 F L 58 L 18 148/84 98 08/28/18 15:46 59 L 99 08/28/18 15:43 131/71 08/28/18 14:40 98.8 F 16 08/28/18 13:15 60 135/70 08/28/18 12:15 58 L 142/67 08/28/18 12:00 97.9 F 14 08/28/18 11:15 61 128/75 08/28/18 10:15 64 136/78 08/28/18 09:18 62 173/80 Intake and Output 08/28/18 08/29/18 08/29/18 22:59 06:59 14:59 Intake Total 620 120 Balance 620 120 Intake: Oral 260 Intake, Free Water 360 120 Other: Total, Intake Amount 260 # Voids Indwelling Catheter 0 Void 1 - Exam Abdomen: Present: normal appearance, soft Extremities: Present: normal - Labs Labs: Abnormal lab results 08/28/18 08/28/18 Range/Units 09:10 09:10 Creatinine 0.4 L (0.7-1.2) mg/dL Magnesium 4.20 H (1.7-2.3) mg/dL Lactate Dehydrogenase 233 H (91-180) units/L
--- NOTE | 2018-08-29 08:59 | Discharge Summary ---
Providers - Providers Date of Admission: 08/26/18 14:45 Date of discharge: 08/29/18 Attending physician: MARJORIE CASTELLANOS MD 08/28/18 08:59 Consult to Medical Cash Poster [CONS] Routine Reason For Exam: assistance with , SNS Primary care physician: MARJORIE CASTELLANOS MD Hospitalization Reason for admission: induction of labor Delivery: Discharge diagnosis: IUP at term delivered Hospital course: Patient induced for PIH. Patient had a . She received magnesium . Remainder of course unremarkable Condition at discharge: Good Disposition: DC-01 TO HOME OR SELFCARE - Discharge Diagnoses (1) PIH ( induced hypertension) Status: Acute Plan - Discharge Medications Prescriptions: Ibuprofen [Motrin] 800 mg PO Q8HR PRN #60 tablet PRN Reason: Pain, Mild (1-3) HYDROcodone/APAP 5-325 [Jarales 5/325] 1 each PO Q6HR PRN #20 tablet PRN Reason: Pain - Provider Discharge Summary Activity: no sex for 6 weeks, no heavy lifting 4 weeks, no strenuous exercise Diet: routine Instructions: routine Additional instructions: [] Smoking cessation referral if applicable(refer to patient education folder for contact #) [] Refer to [facility] Booklet Call your doctor immediately for: * Fever > 100.5 * Heavy vaginal bleeding ( >1 pad per hour) * Severe persistent headache * Shortness of breath * Reddened, hot, painful area to leg or breast * schedule followup in one week for bp check - Follow up plan Follow up: MARJORIE CASTELLANOS MD [Primary Care Provider] - 7 Days
[2018-08-29] MEDS: PRENATAL VITAMIN PO SCH (09:49)
[2018-08-29] MEDS: NORCO 5/325 PO PRN ×3 (09:50→22:05)
[2018-08-29] MEDS: COLACE PO SCH ×2 (09:54→22:04)
[2018-08-29] MEDS ORDERED: BICITRA PO ONE (10:34)
[2018-08-29] MEDS ORDERED: PEPCID IV SCH (11:00)
[2018-08-29] MEDS: TUCKS PAD TP PRN (11:12)
--- NOTE | 2018-08-29 13:38 | Nuclear Medicine Report ---
VENTILATION PERFUSION PULMONARY SCINTIGRAPHY HISTORY: Shortness of breath and chest pain for 2 days. COMPARISON: 08/29/2018 chest radiograph. TECHNIQUE: Radiopharmaceutical was inhaled. Tc-99m-MAA was then injected. Ventilation and perfusion images were acquired. RADIOPHARMACEUTICAL: 13.2 mCi of Xe-133 inhaled 5.5 mCi of Tc-99m-MAA injected FINDINGS: VENTILATION: No significant air trapping or defect. PERFUSION: No significant segmental or non-segmental defect. Additional Findings: None. IMPRESSION: 1. Low probability for pulmonary embolism. Signer Name: Audi Stringer Jr, MD Signed: 08/29/2018 1:34 PM Workstation Name: [id number]
--- NOTE | 2018-08-29 16:04 | XRay Report ---
CHEST 1 VIEW INDICATION: in conjunction with VQ scan for PE. Chest pain and shortness of breath for 2 days. COMPARISON: FINDINGS: Support devices: None. Heart: Borderline heart size. The mediastinal contour is within normal limits. Lungs/Pleura: Mild central pulmonary venous congestion is suspected. The lungs are generally clear ot herwise. No evidence for pneumonia, pleural effusion or pneumothorax. Additional findings: None. IMPRESSION: 1. Borderline heart size and pulmonary venous congestion but no CHF. Signer Name: Audi Stringer Jr, MD Signed: 08/29/2018 3:59 PM Workstation Name: [id number]
[2018-08-30] MEDS: IBUPROFEN PO SCH ×2 (03:34→11:07)
[2018-08-30] MEDS: NORCO 5/325 PO PRN ×2 (03:35→11:09)
[2018-08-30 10:43] VITALS: BP 154/75
[2018-08-30] MEDS: PRENATAL VITAMIN PO SCH (11:07)
[2018-08-30] MEDS: COLACE PO SCH (11:07)
--- NOTE | 2018-08-30 11:34 | Progress Note ---
Assessment and Plan - Patient Problems (1) PIH ( induced hypertension) Current Visit: Yes Status: Acute Plan to address problem: start po antihypertensives. will consider discharge later today Subjective - Subjective Date of service: 08/30/18 Principal diagnosis: Interval history: After evaluating the patient yesterday, she later complained of some chest pain. VQ scan, CXR and EKG performed without any significant findings. Blood pressures have been labile. Will initiate antihypertensives today. Patient reports: appetite normal, voiding normally, pain well controlled [place]: doing well Objective - Vital Signs Latest vital signs: Vital Signs Temp Pulse Resp BP Pulse Ox 08/30/18 09:46 63 16 154/75 100 08/30/18 08:10 97.6 F 62 16 189/81 99 08/29/18 23:56 97.7 F 61 18 135/101 98 08/29/18 19:49 98.1 F 63 18 133/74 97 08/29/18 17:51 98.3 F 58 L 16 167/88 100
[2018-08-30] MEDS ORDERED: PROCARDIA XL PO SCH (12:00)
[2018-08-30] MEDS ORDERED: PEPCID PO SCH (13:00)
== END 2018-08-30 15:00 | disposition home or self-care (01) | DRG 774 ==
LOC: TRG 14:41 → LD 14:45 → TRG 14:45 → OB 08-28 15:12
PROVIDERS: ADMIT Obstetrics & Gynecology; ATTEND Obstetrics & Gynecology
PROC: 10E0XZZ Delivery of Products of Conception, External Approach (ICD-10-PCS; principal; 2018-08-27)
PROC: 10H07YZ Insertion of Other Device into Products of Conception, Via Natural or Artificial Opening (ICD-10-PCS; 2018-08-27)
PROC: 3E0P7VZ Introduction of Hormone into Female Reproductive, Via Natural or Artificial Opening (ICD-10-PCS; 2018-08-27)
PROC: 3E0R3BZ Introduction of Anesthetic Agent into Spinal Canal, Percutaneous Approach (ICD-10-PCS; 2018-08-27)
PROC: 00HU33Z Insertion of Infusion Device into Spinal Canal, Percutaneous Approach (ICD-10-PCS; 2018-08-27)
DX: O13.4 Gestational [pregnancy-induced] hypertension without significant proteinuria, complicating childbirth (principal); Z3A.39 39 weeks gestation of pregnancy; O99.214 Obesity complicating childbirth; E66.01 Morbid (severe) obesity due to excess calories; B00.9 Herpesviral infection, unspecified; O98.52 Other viral diseases complicating childbirth; O99.824 Streptococcus B carrier state complicating childbirth; O14.94 Unspecified pre-eclampsia, complicating childbirth; O77.0 Labor and delivery complicated by meconium in amniotic fluid; O69.81X0 Labor and delivery complicated by cord around neck, without compression, not applicable or unspecified; Z37.0 Single live birth; Z82.49 Family history of ischemic heart disease and other diseases of the circulatory system; Z83.3 Family history of diabetes mellitus
CPT/HCPCS: 36415; 59200; 71045; 78582; 81001; 82565; 83615; 83735; 84450; 84460; 84550; 85014; 85018; 85027; 86592; 86850; 86900; 86901; 93005; 93010; G0378; A9540; A9558; J0360; J0595; J2590; J3010; J3475; J7120